=== PATIENT | male | born 1955 | race Caucasian/White ===

== ENCOUNTER 2019-11-25 13:12 | Emergency (ER) | payer OTHER ==
[2019-11-25] MEDS ORDERED: Sodium Chloride 0.9% 10 ML Syringe FLUSH PRN (13:22)
--- NOTE | 2019-11-25 13:42 | CT ---
[id number] CT/CT Head Stroke Protocol Exam: CT Head Stroke Protocol Clinical Data: NEUROLOGIC DEFICIT COMPARISON: NO PREVIOUS SIMILAR EXAM IS AVAILABLE FINDINGS: There is no mass or mass effect There is no hemorrhage or hydrocephalus There are no extra-axial fluid There are no sites of abnormal attenuation There is no hyperdense middle cerebral artery sign IMPRESSION: NEGATIVE PLAIN CT BRAIN Dane Daniels MD 11/25/19 [id number] Thank you for allowing us to participate in the care of your patient.
--- NOTE | 2019-11-25 13:48 | EDM.PDOC ---
ED HPI GENERAL MEDICAL PROBLEM - General Time Seen by Provider: 11/25/19 13:12 Source of Information: Reports: Patient, Family History Limitations: Reports: No Limitations - History of Present Illness INITIAL COMMENTS - FREE TEXT/NARRATIVE: Pt. presents to ER with complaints of L sided facial droop/numbness. He states that he noticed it at around 9 AM this AM. 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 he states that he has been experiencing head/facial pain/ear pain since Friday, L more than R. Denies any head trauma. No problems with speech or ambulation. Pt. denies any numbness/tingling in extremities. Denies any vision changes. Denies any chest pain, shortness of breath, nausea, or vomiting. Pt. has a history of hypertension and was quite hypertensive with a BP of 190/ 113 on admission to ER. He is currently on HCTZ 25mg once daily and also takes zocor 40mg daily for dyslipidemia. He has a history of impaired fasting blood glucose. He is managing this with diet and exercise. Last A1C was 5.8 in September. Onset: Today Onset Date: 11/25/19 Location: Reports: Head, Generalized Quality: Reports: Ache Associated Symptoms: Reports: Headaches, Weakness (L sided facial droop). Denies: Confusion, Chest Pain, Cough, Diaphoresis, Malaise, Nausea/Vomiting, Rash, Seizure, Shortness of Breath, Syncope - Related Data Allergies Allergy/AdvReac Type Severity Reaction Status Date / Time Unable to Assess Allergy Unverified 11/25/19 13:19 ED ROS GENERAL - Review of Systems Review Of Systems: See Below Constitutional: Reports: No Symptoms HEENT: Reports: Other (See HPI) Respiratory: Reports: No Symptoms Cardiovascular: Reports: No Symptoms Endocrine: Reports: No Symptoms GI/Abdominal: Reports: No Symptoms : Reports: No Symptoms Musculoskeletal: Reports: No Symptoms Skin: Reports: No Symptoms Neurological: Reports: Headache, Numbness (L side of face), Paresthesia. Denies : Trouble Speaking, Difficulty Walking, Weakness, Change in Speech Psychiatric: Reports: No Symptoms Hematologic/Lymphatic: Reports: No Symptoms Immunologic: Reports: No Symptoms ED EXAM, GENERAL - Physical Exam Exam: See Below Exam Limited By: No Limitations General Appearance: Alert, WD/WN, No Apparent Distress Eye Exam: Bilateral Eye: EOMI, PERRL Ears: Normal External Exam, Normal Canal, Hearing Grossly Normal, Normal TMs Ear Exam: Bilateral Ear: Auricle Normal, Canal Normal, TM normal Nose: Normal Inspection, Normal Mucosa, No Blood Throat/Mouth: Normal Inspection, Normal Lips, Normal Teeth, Normal Gums, Normal Oropharynx, Normal Voice, No Airway Compromise Head: Atraumatic, Normocephalic Neck: Normal Inspection, Supple, Non-Tender, Full Range of Motion Respiratory/Chest: No Respiratory Distress, Lungs Clear, Normal Breath Sounds, No Accessory Muscle Use, Chest Non-Tender Cardiovascular: Normal Peripheral Pulses, Regular Rate, Rhythm, No Edema, No Gallop, No JVD, No Murmur, No Rub GI/Abdominal: Normal Bowel Sounds, Soft, Non-Tender, No Organomegaly, No Distention, No Abnormal Bruit, No Mass, Pelvis Stable (Male) Exam: Deferred Rectal (Males) Exam: Deferred Back Exam: Normal Inspection, Full Range of Motion Extremities: Normal Inspection, Normal Range of Motion, Non-Tender, No Pedal Edema, Normal Capillary Refill Neurological: Alert, Oriented, Normal Cognition, Normal Gait, Normal Reflexes, Other (mild L sided facial droop. NIH scale performed) Psychiatric: Normal Affect, Normal Mood Skin Exam: Warm, Dry, Intact, Normal Color, No Rash Lymphatic: No Adenopathy EKG INTERPRETATION Rhythm: NSR QRS: LBBB ST-T: Normal QT: Normal Course - Orders/Labs/Meds Orders: Active Orders 24 hr Category Date Time Status Blood Glucose Check, Bedside [RC] ONETIME Care 11/25/19 13:21 Active EKG Documentation Completion [RC] STAT Care 11/25/19 13:20 Active CTA Neck W & W/O Contrast [Ang Neck] [CT] Stat Exams 11/25/19 13:55 Taken Sodium Chloride 0.9% [Saline Flush] Med 11/25/19 13:22 Active 10 ml FLUSH ASDIRECTED PRN Peripheral IV Insertion Adult [OM.PC] Routine Oth 11/25/19 13:22 Ordered Medication Orders Sodium Chloride (Saline Flush) 10 ml FLUSH ASDIRECTED PRN PRN Reason: Keep Vein Open Labs: Laboratory Tests 11/25/19 11/25/19 11/25/19 Range/Units 13:29 13:29 13:29 WBC 7.3 (4.0-10.0) x10^3/uL RBC 5.08 (4.5-6.0) x10^6/uL Hgb 15.5 (14.0-18.0) g/dL Hct 45.7 (40.0-52.0) % MCV 90.0 (78.0-93.0) fL MCH 30.5 (26.0-32.0) pg MCHC 33.9 (32.0-36.0) g/dL RDW Coeff of Kely 13.3 (10.0-15.0) % Plt Count 236 (130-400) x10^3/uL Neut % (Auto) 52.0 (50.0-80.0) % Lymph % (Auto) 36.1 (25.0-50.0) % Wood % (Auto) 9.2 (2.0-11.0) % Eos % (Auto) 2.3 (0.0-4.0) % Baso % (Auto) 0.4 (0.2-1.2) % PT 10.3 (10.0-12.8) SEC INR 0.9 L (2.0-3.5) Sodium 137 (136-145) mmol/L Potassium 3.4 L (3.5-5.1) mmol/L Chloride 99 (98-107) mmol/L Carbon Dioxide 26 (21-32) mmol/L Anion Gap 15.4 (10-20) mmol/L BUN 16 (7-18) mg/dL Creatinine 1.2 (0.70-1.30) mg/dL Est Cr Clr Drug Dosing TNP Estimated GFR (MDRD) > 60 Glucose 110 H (74-106) mg/dL Calcium 9.0 (8.5-10.1) mg/dL Corrected Calcium 8.92 (8.5-10.1) mg/dL Total Bilirubin 0.6 (0.2-1.0) mg/dL AST 31 (15-37) U/L ALT 61 (16-63) U/L Alkaline Phosphatase 50 (46-116) U/L POC Troponin I (0.00-0.08) ng/mL C-Reactive Protein < 0.2 (<=0.9) mg/dL Total Protein 8.0 (6.4-8.2) g/dL Albumin 4.1 (3.4-5.0) g/dL Globulin 3.9 Albumin/Globulin Ratio 1.05 11/25/19 Range/Units 13:38 WBC (4.0-10.0) x10^3/uL RBC (4.5-6.0) x10^6/uL Hgb (14.0-18.0) g/dL Hct (40.0-52.0) % MCV (78.0-93.0) fL MCH (26.0-32.0) pg MCHC (32.0-36.0) g/dL RDW Coeff of Kely (10.0-15.0) % Plt Count (130-400) x10^3/uL Neut % (Auto) (50.0-80.0) % Lymph % (Auto) (25.0-50.0) % Wood % (Auto) (2.0-11.0) % Eos % (Auto) (0.0-4.0) % Baso % (Auto) (0.2-1.2) % PT (10.0-12.8) SEC INR (2.0-3.5) Sodium (136-145) mmol/L Potassium (3.5-5.1) mmol/L Chloride (98-107) mmol/L Carbon Dioxide (21-32) mmol/L Anion Gap (10-20) mmol/L BUN (7-18) mg/dL Creatinine (0.70-1.30) mg/dL Est Cr Clr Drug Dosing Estimated GFR (MDRD) Glucose (74-106) mg/dL Calcium (8.5-10.1) mg/dL Corrected Calcium (8.5-10.1) mg/dL Total Bilirubin (0.2-1.0) mg/dL AST (15-37) U/L ALT (16-63) U/L Alkaline Phosphatase (46-116) U/L POC Troponin I 0.00 (0.00-0.08) ng/mL C-Reactive Protein (<=0.9) mg/dL Total Protein (6.4-8.2) g/dL Albumin (3.4-5.0) g/dL Globulin Albumin/Globulin Ratio Meds: Medications Generic Name Dose Route Start Last Admin Trade Name Paulo PRN Reason Stop Dose Admin Sodium Chloride 10 ml 11/25/19 13:22 Saline Flush FLUSH ASDIRECTED PRN Keep Vein Open Discontinued Medications Generic Name Dose Route Start Last Admin Trade Name Paulo PRN Reason Stop Dose Admin Iopamidol 100 ml 11/25/19 14:19 11/25/19 14:32 Isovue-300 (61%) IVPUSH 11/25/19 14:20 100 ml ONETIME ONE Administration - Radiology Interpretation Free Text/Narrative:: CT brain without contrast negative for acute pathology. CTA brain negative for acute pathology. CTA neck obtained and showed some mild plaque at R carotid artery bifurcation. No stenosis or acute arterial findings noted. Departure - Departure Time of Disposition: 15:39 Disposition: Home, Self-Care 01 Clinical Impression: Parrish's palsy - Discharge Information Instructions: Parrish Palsy, Adult, Valacyclovir caplets, Prednisone tablets Referrals: PCP,None [Primary Care Provider] - Additional Instructions: Valacyclovir 1000mg 1 tab 3 times daily for 7 days Prednisone 20mg 3 tabs once daily for 7 days Make sure that your eyelid is closing. You may experience some dry eye. If this is happening, use artificial hears of your choice. Recheck in clinic in 7-10 days. Return to ER if you have any extremity weakness/numbness, troubles with walking or speaking. Sepsis Event Note - Focused Exam Date Exam was Performed: 11/25/19 Time Exam was Performed: 15:36 - Problem List Review Problem List Initiated/Reviewed/Updated: Yes - My Orders Last 24 Hours: My Active Orders 11/25/19 13:20 EKG Documentation Completion [RC] STAT 11/25/19 13:21 Blood Glucose Check, Bedside [RC] ONETIME 11/25/19 13:22 Sodium Chloride 0.9% [Saline Flush] 10 ml FLUSH ASDIRECTED PRN Peripheral IV Insertion Adult [OM.PC] Routine 11/25/19 13:55 CTA Neck W & W/O Contrast [Ang Neck] [CT] Stat - Assessment/Plan Last 24 Hours: My Active Orders 11/25/19 13:20 EKG Documentation Completion [RC] STAT 11/25/19 13:21 Blood Glucose Check, Bedside [RC] ONETIME 11/25/19 13:22 Sodium Chloride 0.9% [Saline Flush] 10 ml FLUSH ASDIRECTED PRN Peripheral IV Insertion Adult [OM.PC] Routine 11/25/19 13:55 CTA Neck W & W/O Contrast [Ang Neck] [CT] Stat Plan: Discussed findings with Dr. Hernandez, stroke neurologist at [facility] in [place]. She concurs with the diagnosis of Parrish's Palsy. Will start valacyclovir 1000mg three times daily for 7 days. Also started prednisone 60mg daily for a week as well. Advised the importance of making sure the eyelid closes and that he is keeping the eye moisturized with artificial tears. If he is having issues with this, he should follow-up at eye clinic, even store hand would be of benefit. The LBBB appears to be an incidental finding. He has never been diagnosed with this, and he has not EKG on file for comparison. He is not currently experiencing any chest pain or shortness of breath. He should have cardiology follow-up in the not so distant future for this, however. He was advised if he develops extremity weakness, troubles with speech, ambulation, lightheadedness, chest pain, or shortness of breath. He has a history of several vascular comorbidities including IFG, dyslipidemia, and hypertension. His discharge BP was 138/90; again was much higher on triage likely due to activation of stroke team/stress of the event, but he would benefit from maximal treatment of his BP. All questions were answered.
[2019-11-25 14:04] LABS: ANION GAP 15.4 mmol/L (10-20); CHLORIDE,CL 99 mmol/L (98-107); SODIUM,NA 137 mmol/L (136-145)
[2019-11-25] MEDS ORDERED: Iopamidol 612 MG/ML 100 ML Bottle IVPUSH ONE (14:19)
--- NOTE | 2019-11-25 15:04 | CT ---
[id number] CT/CTA Head Neck EXAM: CT angiogram head and neck INDICATION: LEFT SIDED FACIAL NUMBNESS. COMPARISON: None. DISCUSSION: Aortic arch: The partially imaged aortic arch is normal in caliber with a conventional branching morphology. Right carotid artery: Mild plaque at the carotid bifurcation. No aneurysm, dissection, significant stenosis or other acute findings. Left carotid artery: Normal in caliber. No significant stenosis or other abnormality. Right vertebral artery: Normal in caliber. No significant stenosis or other abnormality. Left vertebral artery: Normal in caliber. No significant stenosis or other abnormality. Basilar artery: Normal in caliber. No significant stenosis or other abnormality. Mobile of Styles: origins of both posterior cerebral arteries. Artifact mildly limits detail, but no large vessel occlusion, thrombosis or aneurysm is identified. Dural sinuses, jugular veins and cerebral veins: Limited evaluation of the cerebral veins, dural sinuses and jugular veins is unremarkable. Brain parenchyma: Unremarkable. The neck soft tissues: Unremarkable. Osseous structures: Mucosal retention cyst right maxillary sinus measuring about 20 mm in diameter. IMPRESSION: 1. Mild plaque at the right carotid bifurcation. No acute arterial findings in the head and neck. Seth Horta MD 11/25/19 0923 Thank you for allowing us to participate in the care of your patient.
== END 2019-11-25 15:40 | disposition home or self-care (01) ==
LOC: VM.ED 13:12
DX: G51.0 Bell's palsy (principal); I10 Essential (primary) hypertension
CPT/HCPCS: 70450; 70496; 70498; 80053; 82962; 84484; 85025; 85610; 86140; 93005; 99284-25; Q9967